=== PATIENT | male | born 1960 | race Caucasian/White ===

== ENCOUNTER 2019-07-09 21:51 | Emergency (ER) | payer MEDICARE, OTHER, SELFPAY ==
[2019-07-09 21:58] VITALS: BP 136/67; RESP 20; TEMP 36.8
--- NOTE | 2019-07-09 22:03 | DI.RAD.S_ITS ---
PROCEDURE: XR CHEST 1V INDICATIONS: chest pain TECHNIQUE: One view of the chest was acquired. COMPARISON: None. FINDINGS: Surgical changes and devices: None. Lungs and pleura: Lungs are clear. No pleural effusions or pneumothorax. Mediastinum: Mediastinal contours appear normal. Heart size is normal. Bones and chest wall: No suspicious bony lesions. Overlying soft tissues appear unremarkable. IMPRESSION: 1. No acute cardiopulmonary disease. Dictated by: Tobias Palacio M.D. on 07/10/2019 at 7:41 Approved by: Tobias Palacio M.D. on 07/10/2019 at 7:53
[2019-07-09 22:27] LABS: INR 1.1 (0.9-1.3); Prothrombin Time 12.8 SECONDS (10.1-12.7)
[2019-07-09 22:28] LABS: Add Manual Diff / Slide Review NO; Basophils Absolute Auto 100 /uL (0-100); Basophils Percent Auto 0.7 % (0-2); Eosinophils Absolute Auto 200 /uL (0-450); Eosinophils Percent Auto 1.9 % (2-4); Hemoglobin 10.9 g/dL (13.5-17.5); Lymphocytes Absolute Auto 1100 /uL (1100-4500); Mean Corpuscular HGB Conc 32.2 % (30-36); Mean Corpuscular Hemoglobin 29.4 PG (26-34); Mean Corpuscular Volume 91.3 fL (80-100); Monocytes Absolute Auto 1000 /uL (0-900); Monocytes Percent Auto 11.6 % (3-14); Neutrophils Absolute Auto 5900 /uL (1500-7000); Neutrophils Percent Auto 71.8 % (50-75); Platelet Count 283 X10^3/uL (150-400); Red Blood Cell Count 3.72 X10^6/uL (4.5-5.9); Red Cell Distribution Width 15.4 % (11.6-14.8); White Blood Cell Count 8.2 X10^3/uL (4.5-11.0)
[2019-07-09 22:31] LABS: Alanine Aminotransferase 11 IU/L (<50); Albumin 4.3 g/dL (3.5-5.0); Albumin Globulin Ratio 1.3 (1.0-2.8); Alkaline Phosphatase 100 U/L (38-126); Aspartate Aminotransferase 20 IU/L (17-59); BUN Creatinine Ratio 4.6 (6-22); Bilirubin Total 1.4 mg/dL (0.2-1.3); Blood Urea Nitrogen 37 mg/dL (9-20); Carbon Dioxide 23 mmol/L (22-32); Chloride 97 mmol/L (98-107); Creatine Kinase 84 U/L (55-170); Estimated Glomerular Filt Rate 6.8 mL/min (>60); Globulin 3.2 g/dL (1.7-4.1); Glucose 129 mg/dL (80-110); HEMOLYSIS < 15 (0-50); Magnesium 2.1 mg/dL (1.6-2.3); Potassium 4.4 mmol/L (3.4-5.1); Sodium 138 mmol/L (137-145); Total Protein 7.5 g/dL (6.3-8.2)
--- NOTE | 2019-07-09 22:31 | ED_ITS ---
HPI - Chest Pain General Chief Complaint: Chest Pain Stated Complaint: multiple issues Time Seen by Provider: 07/09/19 22:30 Source: patient Mode of arrival: Ambulatory Limitations: no limitations History of Present Illness HPI narrative: This is a 59-year-old male comes to the emergency department complaint of feeling bad today. Patient states that he has had a cough for about 3 weeks. Today during dialysis he had nausea as well as chest pain that radiated to his back. He states it resolved during dialysis and he has not had any further. Patient states he has felt dizzy with standing, he has continued to have a nonproductive cough. He has felt short of breath since he has had the cough. He states usually with exertion. He denies fevers or chills, he denies any congestion, no abdominal pain. He states he often has nausea. He has been will constipated but had a bowel movement today. He has not had an appetite. He has edema in his lower extremities but states his normal. He states he does his dialysis and intermittently and missed Friday dialysis but was present for Friday and today completed his full 3 in a 1/2 hours. He denies any history of hypertension, dyslipidemia, he has a history of diabetes but states he is no longer on meds because he lost significant amount of weight they bariatric bypass. He does have neuropathy secondary to his diabetes and chronic kidney disease. He denies any past cardiac history or arrhythmias. He states his fistula is his only other surgery. He denies tobacco, alcohol or illicit. 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 Related Data Allergies Allergy/AdvReac Type Severity Reaction Status Date / Time No Known Drug Allergies Allergy Verified 07/09/19 22:01 Review of Systems Review of Systems ROS Unobtainable: All systems reviewed & are unremarkable except as noted in HPI and below Exam Narrative Exam Narrative: GENERAL: Alert and oriented x three, obese male in mild distress. HEENT: Head normocephalic, atraumatic, EOMI, pupils reactive, face symmetric, moist mucous membranes NECK: Supple, full range of motion CARDIOVASCULAR: Irregular intermittent beats rate and rhythm without murmurs, rubs or gallops. 1+ edema bilateral lower extremities nonpitting. RESPIRATORY: Breath sounds equal bilaterally, no wheezes rales or rhonchi. No tachypnea, no accessory muscle use. ABDOMEN: Soft, nontender. Normoactive bowel sounds all 4 quadrants. No guarding or rebound, rigidity, no mass : No CVA tenderness EXTREMITIES: Normal range of motion, no clubbing or edema. Neurovascularly intact NEUROLOGICAL: Cranial nerves II through XII grossly intact. Moving all extremities SKIN: Warm, dry, no petechiae, no rashes or lesions. Initial Vital Signs Initial Vital Signs: Vital Signs Temperature 98.2 F 07/09/19 21:58 Respiratory Rate 20 07/09/19 21:58 Blood Pressure 136/67 07/09/19 21:58 Course Orders Ordered: ED Orders 07/09/19 22:02 EKG-12 Lead Stat 07/09/19 22:03 Chest [XR chest 1V] Stat 07/09/19 22:10 B Type Natriuretic Peptide Stat Complete Blood Count AUTO DIFF Stat Comprehensive Metabolic Panel Stat Magnesium Stat PT [Prothrombin Time INR] Stat Troponin & CK Cardiac Panel Stat Discontinued Medications Aspirin (Aspirin Chew) 324 mg PO NOW ONE Stop: 07/09/19 23:02 Last Admin: 07/09/19 23:22 Dose: 324 mg Documented by: ZACKERY Heparin Sodium (Porcine) (Heparin) 7,500 unit IV NOW ONE Stop: 07/10/19 00:09 Last Admin: 07/10/19 00:40 Dose: 7,500 unit Documented by: ZACKERY Heparin Sodium/Dextrose (Heparin Drip) 25,000 unit in 500 mls @ 26.64 mls/hr IV CONT KELLY; Protocol Last Titration: 07/10/19 01:33 Dose: 12 units/kg/hr, 26.64 mls/hr Documented by: Admin: 07/10/19 00:44 Dose: 12 units/kg/hr, 26.64 mls/hr Documented by: ZACKERY Vital Signs Vital signs: Vital Signs - 8 hr 07/09/19 21:58 07/09/19 22:42 07/09/19 23:08 Temperature 98.2 F Pulse Rate 93 H 73 Respiratory Rate 20 14 25 H Blood Pressure 136/67 Blood Pressure [Left Arm] 133/62 135/67 Pulse Oximetry 95 100 07/10/19 00:30 07/10/19 01:25 Temperature Pulse Rate 93 H 92 H Respiratory Rate 19 23 Blood Pressure Blood Pressure [Left Arm] 141/52 H 133/50 L Pulse Oximetry 96 96 MDM - Chest Pain Lab Data Attestation: I reviewed the patient's lab results. Result diagrams: 07/09/19 22:10 07/09/19 22:10 Labs: Lab Results 07/09/19 07/09/19 07/09/19 Range/Units 22:10 22:10 22:10 WBC 8.2 (4.5-11.0) X10^3/uL RBC 3.72 L (4.5-5.9) X10^6/uL Hgb 10.9 L (13.5-17.5) g/dL Hct 34.0 L (41-53) % MCV 91.3 (80-100) fL MCH 29.4 (26-34) PG MCHC 32.2 (30-36) % RDW 15.4 H (11.6-14.8) % Plt Count 283 (150-400) X10^3/uL Neut % (Auto) 71.8 (50-75) % Lymph % (Auto) 14.0 L (25-40) % Alcorn % (Auto) 11.6 (3-14) % Eos % (Auto) 1.9 L (2-4) % Baso % (Auto) 0.7 (0-2) % Neut # (Auto) 5900 (6083-1332) /uL Lymph # (Auto) 1100 (7237-8351) /uL Alcorn # (Auto) 1000 H (0-900) /uL Eos # (Auto) 200 (0-450) /uL Baso # (Auto) 100 (0-100) /uL PT 12.8 H (10.1-12.7) SECONDS INR 1.1 (0.9-1.3) Sodium 138 (137-145) mmol/L Potassium 4.4 (3.4-5.1) mmol/L Chloride 97 L (98-107) mmol/L Carbon Dioxide 23 (22-32) mmol/L BUN 37 H (9-20) mg/dL Creatinine 8.10 H* (0.66-1.25) mg/dL Estimated GFR 6.8 L (>60) mL/min BUN/Creatinine Ratio 4.6 L (6-22) Glucose 129 H (80-110) mg/dL Calcium 9.0 (8.4-10.2) mg/dL Magnesium 2.1 (1.6-2.3) mg/dL Total Bilirubin 1.4 H (0.2-1.3) mg/dL AST 20 (17-59) IU/L ALT 11 (<50) IU/L Alkaline Phosphatase 100 (38-126) U/L Total Creatine Kinase 84 (55-170) U/L CK-MB (CK-2) TNP CK-MB (CK-2) Rel Index TNP Troponin I 3.090 H* (0.01-0.034) ng/mL B-Natriuretic Peptide (<100) Total Protein 7.5 (6.3-8.2) g/dL Albumin 4.3 (3.5-5.0) g/dL Globulin 3.2 (1.7-4.1) g/dL Albumin/Globulin Ratio 1.3 (1.0-2.8) 07/09/19 Range/Units 22:10 WBC (4.5-11.0) X10^3/uL RBC (4.5-5.9) X10^6/uL Hgb (13.5-17.5) g/dL Hct (41-53) % MCV (80-100) fL MCH (26-34) PG MCHC (30-36) % RDW (11.6-14.8) % Plt Count (150-400) X10^3/uL Neut % (Auto) (50-75) % Lymph % (Auto) (25-40) % Alcorn % (Auto) (3-14) % Eos % (Auto) (2-4) % Baso % (Auto) (0-2) % Neut # (Auto) (9280-7843) /uL Lymph # (Auto) (9522-0009) /uL Alcorn # (Auto) (0-900) /uL Eos # (Auto) (0-450) /uL Baso # (Auto) (0-100) /uL PT (10.1-12.7) SECONDS INR (0.9-1.3) Sodium (137-145) mmol/L Potassium (3.4-5.1) mmol/L Chloride (98-107) mmol/L Carbon Dioxide (22-32) mmol/L BUN (9-20) mg/dL Creatinine (0.66-1.25) mg/dL Estimated GFR (>60) mL/min BUN/Creatinine Ratio (6-22) Glucose (80-110) mg/dL Calcium (8.4-10.2) mg/dL Magnesium (1.6-2.3) mg/dL Total Bilirubin (0.2-1.3) mg/dL AST (17-59) IU/L ALT (<50) IU/L Alkaline Phosphatase (38-126) U/L Total Creatine Kinase (55-170) U/L CK-MB (CK-2) CK-MB (CK-2) Rel Index Troponin I (0.01-0.034) ng/mL B-Natriuretic Peptide > 3630 H (<100) Total Protein (6.3-8.2) g/dL Albumin (3.5-5.0) g/dL Globulin (1.7-4.1) g/dL Albumin/Globulin Ratio (1.0-2.8) Imaging Data Chest x-ray: My impression: Patient has possible pulmonary edema/opacification the right lower lobe but no clear pulmonary edema. Positive for cardiomegaly. Otherwise normal mediastinum. No fractures, no pneumothorax. ECG Data Attestation: I personally reviewed and interpreted this ECG as follows: Prior ECG tracings: not available for review Interpretation: Sinus tachycardia with frequent PVCs rate of 105, NC interval 140 QRS 82 and QTC of 371. Patient does not have any ST elevation he does have some depression in lateral leads. Q-wave in 1 and aVL. No prior available for comparison MDM Narrative Medical decision making narrative: Patient comes in today with complaint of shortness of breath and not feeling well. He did complain of chest pain during his dialysis but has had none since about 930 this morning. Labs are consistent with a dialysis history of a creatinine of 8.1 troponin is 3.09 with a BNP of 3600 and no labs available for comparison. Patient does have an elevated bilirubin 1.4, electrolytes show a chloride of 97 but no hyponatremia or potassi um changes. Patient does have a hemoglobin of 10, crit of 34 with no elevation in white count. Patient's EKG shows multiple PVCs which he has had throughout his stay he does not have any ST elevation does appear to have some depression in lateral leads. Patient's human services supervisor is through [place] and we discussed and plan for transfer to [place]. Spoke with Cardiology aspirin, heparin drip. They do not recommend metoprolol this time with patient's ectopy. Spoke with Dr. Mccarty from Cardiology recommends heparin drip, aspirin no metoprolol or beta-scooter. Spoke with Dr. Roach, the hospitalist she accepts for transfer to [place]. Patient continues to be chest pain-free here in the department. Aspirin and heparin on board. Patient is wearing plan. Discharge Plan Departure Patient Disposition: [facility] Clinical Impression: Non-ST elevation RI (NSTEMI), Chronic kidney disease requiring chronic dialysis, Anemia Discharge Date/Time: 07/10/19 01:34
[2019-07-09 22:42] VITALS: BP 133/62; PULSE 93; RESP 14; O2SAT 95
[2019-07-09 23:08] VITALS: BP 135/67; PULSE 73; RESP 25; O2SAT 100
[2019-07-09 23:10] LABS: B Type Natriuretic Peptide > 3630 (<100)
[2019-07-09] MEDS: ASPIRIN 81 MG CHEW TAB 324 MG PO (23:22)
[2019-07-10 00:30] VITALS: BP 141/52; PULSE 93; RESP 19; O2SAT 96
[2019-07-10] MEDS: HEPARIN 5,000 UNIT/ML VIAL 7500 UNIT IV (00:40)
[2019-07-10] MEDS: HEPARIN DRIP 25,000 UNIT/500 ML IV.SOLN 26.64 UNIT IV (00:44)
[2019-07-10 01:25] VITALS: BP 133/50; PULSE 92; RESP 23; O2SAT 96
== END 2019-07-10 01:34 | disposition short-term general hospital (02) ==
PROVIDERS: Emergency Provider Emergency Medicine
DX: I21.4 Non-ST elevation (NSTEMI) myocardial infarction (principal); N18.9 Chronic kidney disease, unspecified; Z99.2 Dependence on renal dialysis; D64.9 Anemia, unspecified; R06.02 Shortness of breath
CPT/HCPCS: 36415; 71045; 80053; 82550; 83735; 83880; 84484; 85025; 85610; 93005; 96365; 96375; 99283; 99285; J1644